=== PATIENT | female | born 1945 | race Caucasian/White ===

== ENCOUNTER → 2020-06-28 10:15 | Oncology outpatient (ONC) | payer MEDICARE, BC, SELFPAY ==
[2020-06-28 11:04] VITALS: BP 136/77; PULSE 61; RESP 18; TEMP 36.7; O2SAT 96
--- NOTE | 2020-06-28 12:00 | ONC.CONS ---
History of Present Illness - Data of Consult Primary Care Provider: Ajay Hay MD - Consult Narrative Narrative: Radha Cervantes is a 74 year old female who presents today for further evaluation of myelofibrosis and anemia. She states she was originally diagnosed with myelofibrosis in 1991. She splits her time between [place], [place] in [facility] She has a retail event assistant at [employer] who manages her care. She has been on MATTI if he 10 mg daily. She has developed anemia and has been getting erythropoietin 76156 units once a week when her hematocrit when her hemoglobin drops below 11. [place] last dose [place] [address]51 [place]. Her insurance has changed such that she can no longer by it and self administer. Accordingly, she presents here to establish hematology care to facilitate her erythropoietin injections while she is in the [facility] Of note is that labs last month on May 11 showed hemoglobin of 9.7 hematocrit 28.5 platelets 12530 white count 84339 with an absolute neutrophil count of 4590. There were 3% blasts. Review of her old records from [facility] shows that in June of 2017 she had a platelet count of 59 1001% blasts. Her records from 2014 to 2016 showed consistent peripheral blasts ranging from 1-6%. From her perspective she is generally feeling fairly good. She has an occasional cough which has really changed. She has some aches and pains which are not new. She notes early satiety but no left upper quadrant pain. She notes easy bruising. She has had a headache recently to that she attributes to the smoke and has gotten better as the air quality has improved. She denies other pain, bleeding, localized weakness, fever, chills, nausea, vomiting, or shortness of breath. All other systems are negative. Past medical history 1. Her mother had breast cancer. There is no other family history of malignancy or hematologic disorder 2. She had a hysterectomy in 1996 but no other operations. 3. High blood pressure 4. DJD 5. History of bursitis in her hips 6. Proximal muscle weakness for the last 18 months 7. History of a heart murmur 8. She is a remote smoker. She is not a drinker. She is alone in the office today. 9. She denies diabetes, rheumatic fever, tuberculosis, heart attacks, strokes, stomach ulcers, pneumonia or any kind of cancer 10. She does not tolerate latex or erythromycin 11. History of gout 12. Current medications include allopurinol 300 mg daily, atenolol 50 mg twice a day, as needed Zyrtec, glucosamine, hydrochlorothiazide 25 mg daily, as needed Vicodin, Akhil feet 10 mg daily, acidophilus, lisinopril 40 mg daily, as needed melatonin, multiple vitamin, simvastatin 20 mg daily and as needed Ambien. CC: Laron Elmore MD Home Medications and Allergies Home Medications Medication Instructions Recorded Confirmed Type hydrochlorothiazide 25 mg PO QDAY #0 02/17/17 06/28/20 History Lactobacillus acidophilus 1 cap DAILY 06/28/20 06/28/20 History [Acidophilus] allopurinol 300 mg DAILY 06/28/20 06/28/20 History atenolol 50 mg PO BID 06/28/20 06/28/20 History cetirizine [Aller-Lacy] 5 mg PO DAILY 06/28/20 06/28/20 History glucosamine HCl 1,500 mg PO DAILY 06/28/20 06/28/20 History hydrocodone-acetaminophen 1 tab PRN PRN 06/28/20 06/28/20 History lisinopril 40 mg PO DAILY 06/28/20 06/28/20 History melatonin 1 mg DAILY 06/28/20 06/28/20 History multivitamin 1 cap DAILY 06/28/20 06/28/20 History ruxolitinib [Jakafi] 10 mg PO DAILY 06/28/20 06/28/20 History simvastatin 20 mg PO Q OTHER DAY 06/28/20 06/28/20 History zolpidem 5 mg PRN PRN 06/28/20 06/28/20 History Allergies Allergy/AdvReac Type Severity Reaction Status Date / Time latex [LATEX] Allergy Unknown Unverified 01/14/18 12:32 ERTHROMYCIN Allergy Mild UNKNOWN Uncoded 01/14/18 12:32 Review of Systems - Patient Self-Reported Symptoms SR ears, nose, mouth, throat issues: Ears ringing, Cough SR Musculoskeletal issues: Joint pain or swelling, Muscle weakness, Muscle pain or cramps SR Neuro issues: Headache SR Hematologic issues: Slow healing, Bleeding/bruising Exam Vital signs: Vital Signs Temp Pulse Resp BP Pulse Ox 06/28/20 11:04 98.1 F 61 18 136/77 96 Intake and Output 06/27/20 06/28/20 06/28/20 23:59 07:59 15:59 Other: Weight 93.5 kg Patient Weight 06/28/20 23:59 Weight 93.5 kg Narrative: She was awake, alert and oriented x3. She was in no acute distress. There was no lymphadenopathy in the cervical, supraclavicular axillary regions. Abdomen showed splenomegaly extending to the midline and extending to about 2 cm above the level of the umbilicus in the left midclavicular line. There was no evidence of phlebitis in the lower extremities. 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 Cervantes will have a blood count done today. If hemoglobin is less than 11 we will administer erythropoietin 58485 units subcutaneously. I explained will need to get insurance authorization. She will be coming through [facility] next week on her way back to [place] and we could treat her at that time of we can not coordinate her pre authorization for today. She would like to come back in February for a follow-up visit. We would then be able to monitor her periodically and administer additional erythropoietin as needed. I told her would be happy to help with this. She also will be seeing her retail event assistant at [employer] in the spring and I asked that she get copies of her labs and notes to bring with her to her follow-up visit here in February so that we can make sure we are coordinating with her other providers in her care. She had several questions that were answered in detail and I personally spent 31 minutes in today's [id number] visit with greater than 50% of the time spent in counseling regarding the issues outlined above. Impression: 1. Myelofibrosis 2. Leukoerythroblastosis with circulating blasts, stable since 2014 3. Progressive anemia, currently requiring episodic erythropoietin injections 4. Splenomegaly, mildly symptomatic neck Recommendations: 1. Will check CBC today 2. Erythropoietin 59585 units subcutaneously if her hemoglobin is less than 11 3. She will follow-up with her [employer] retail event assistant in the spring 4. She will return in February of 2021 for a visit here with repeat lab tests 5. We can coordinate additional erythropoietin injections here in [place] as needed to support her counts.
[2020-06-28 12:59] LABS: Hematocrit 31.1 % (36-46); Hemoglobin 10.3 g/dL (12.0-16.0); Mean Corpuscular HGB Conc 33.3 % (30-36); Mean Corpuscular Hemoglobin 30.9 PG (26-34); Mean Corpuscular Volume 92.8 fL (80-100); Red Blood Cell Count 3.35 X10^6/uL (4.0-5.2); Red Cell Distribution Width 20.4 % (11.6-14.8); White Blood Cell Count 11.1 X10^3/uL (4.5-11.0)
[2020-06-28 13:15] LABS: Add Manual Diff / Slide Review YES; Platelet Count 31 X10^3/uL (150-400)
[2020-06-28 13:23] LABS: Neutrophils Absolute Manual 6438 /uL (3000-5900); Nucleated Red Blood Cells 1 #/Diff; Total Cells Counted 100
[2020-06-28 13:24] LABS: Anisocytosis 2+
[2020-06-28 13:25] LABS: Polychromasia 2+
--- NOTE | 2020-06-28 16:19 | PC.NURSE ---
Platelets 31, Dr. Elmore aware, no new orders received.
--- NOTE | 2021-02-20 12:52 | ONC.MSW ---
*Sent bereavement card.
== END ==
PROVIDERS: PCP Family Medicine; Referring Provider Family Medicine; Visit Provider Internal Medicine
DX: D47.1 Chronic myeloproliferative disease (principal); D63.8 Anemia in other chronic diseases classified elsewhere; R16.1 Splenomegaly, not elsewhere classified; I10 Essential (primary) hypertension
CPT/HCPCS: 85025; 99203; 99213

== ENCOUNTER → 2020-06-28 12:16 | Outpatient (CLI) | payer MEDICARE, BC, SELFPAY ==
[2020-06-28] MEDS: EPOETIN ALFA-EPBX 20,000 UNIT, EPOETIN ALFA-EPBX 40,000 UNIT 60000 UNIT SUBCUT (13:31)
== END ==
PROVIDERS: PCP Family Medicine; Referring Provider Family Medicine; Visit Provider Internal Medicine
DX: D47.1 Chronic myeloproliferative disease (principal); D63.8 Anemia in other chronic diseases classified elsewhere; R16.1 Splenomegaly, not elsewhere classified; I10 Essential (primary) hypertension
CPT/HCPCS: 85025; 96372; 99203; 99213; Q5106